=== PATIENT | female | born 1960 | race Caucasian/White ===

== ENCOUNTER → 2016-10-25 | Outpatient (CLI) | payer OTHER ==
[~2016-10-25] MED LIST: IBUP400T22 PO; SULI150T39 PO
--- NOTE | 2016-10-26 14:43 | RADRPT ---
PROCEDURE: Limited x-ray of both lower extremities. CLINICAL INDICATION: Bilateral leg pain. TECHNIQUE: Single frontal view of both lower extremities was obtained weight bearing from the hips t o the calves. COMPARISON: None. FINDINGS: The hips are unremarkable. There is severe joint space narrowing and osteophyte formation involving medial and lateral compartments of the right knee. Left knee is grossly unremarkable. IMPRESSION: 1. Normal hips and left knee. 2. Severe right knee osteoarthrosis. RPTAT: QQ .Brandin Ledesma MD, MD Date Time Electronically viewed and signed by .Brandin Ledesma MD, on 10/26/2016 14:42 .R/
== END | disposition home or self-care (01) ==
LOC: HKI 09:46
PROVIDERS: ATTEND Orthopaedic Surgery
DX: Z01.818 Encounter for other preprocedural examination (principal); M17.11 Unilateral primary osteoarthritis, right knee; M25.561 Pain in right knee
CPT/HCPCS: 77073; Z7500; 87081; G0463

== ENCOUNTER 2016-11-02 08:42 | Inpatient (IN) | payer OTHER ==
[2016-11-01 11:31] VITALS: BMI 29.5
[~2016-11-02] VITALS: Ht 152.4 cm; Wt 66.3 kg
[2016-11-16] VITALS (28 sets, daily range): BP systolic 97–131; BP diastolic 50–77; PULSE 54–80; RESP 14–22; Ht 152.4 cm; Wt 66.3 kg
[2016-11-16] MEDS ORDERED: CELECOXIB 400 MG PO X1 DOSE PO ONE (07:00)
[2016-11-16] MEDS ORDERED: SOD CHLORIDE 0.9% IV ONE (07:00)
[2016-11-16] MEDS ORDERED: PREGABALIN 300 MG PO X1 PO ONE (07:00)
[2016-11-16] MEDS ORDERED: SOD CHLORIDE 0.9% IVPB ONE ×3 (07:00→23:30)
[2016-11-16] MEDS ORDERED: traMADOL 50 MG TAB X 1 DOSE PO ONE (07:00)
[2016-11-16] MEDS ORDERED: oxyCODONE (CR) 10 MG TAB [oxyCONTIN] X1 DOSE PO ONE (07:00)
[2016-11-16] MEDS ORDERED: BUPIVACAINE LIPOSOME/PF 266 MG/20 ML VIAL INFIL ONE (07:00)
[2016-11-16] MEDS ORDERED: TRANEXAMIC ACID IVPB ONE ×3 (07:00→23:30)
[2016-11-16] MEDS ORDERED: PAIN COCKTAIL-CEFUROXIME IRR ONE ×7 (07:00)
[2016-11-16] MEDS ORDERED: TRANEXAMIC ACID IV ONE (07:00)
[2016-11-16] MEDS ORDERED: VANCOMYCIN 1 GM/NS 250 ML X1 BEFORE INCISION IVPB ONE (07:00)
[2016-11-16] MEDS: LACTATED RINGER'S 1,000 ML IV SCH ×4 (08:00→22:10)
[2016-11-16] MEDS ORDERED: EXPAREL NOTE (BUPIVICAINE LIPOSOMAL) XX SCH (09:00)
[2016-11-16] MEDS ORDERED: TRAM-40 PO (12:21)
[2016-11-16] MEDS ORDERED: MELO-110 PO (12:21)
[2016-11-16] MEDS ORDERED: VANCOMYCIN 1 GM INJ ONE ×3 (13:21→15:22)
[2016-11-16] MEDS ORDERED: POLYMYXIN B 500000 UNIT INJ ONE (13:21)
[2016-11-16] MEDS ORDERED: SODIUM CL BACTERIOSTATIC 30 ML INJ ONE (13:21)
--- NOTE | 2016-11-16 14:06 | HPN ---
Date/Time of Note Date/Time of Note DATE: 11/16/16 TIME: 14:06 Interval H&P Admission Note Pt. seen H&P reviewed: No system changes No change from H&P on 11/11/16 by JULIETA Grissom MD Nov 16, 2016 14:06
[2016-11-16] MEDS ORDERED: FENTAnyl 50 MCG/ML VIAL ONE (14:25)
[2016-11-16] MEDS ORDERED: ONDANSETRON 4 MG INJ ONE (14:25)
[2016-11-16] MEDS ORDERED: METOCLOPRAMIDE 10 MG INJ ONE (14:25)
[2016-11-16] MEDS ORDERED: MIDAZOLAM 1 MG/ML 2 ML INJ ONE (14:25)
[2016-11-16] MEDS ORDERED: DEXAMETHASONE 4 MG/ML 1 ML INJ ONE (14:25)
[2016-11-16] MEDS ORDERED: CEFAZOLIN 1 GM INJ ONE (14:45)
[2016-11-16] MEDS ORDERED: EPHEDrine SULFATE 50 MG/5 ML SYG ONE (14:54)
[2016-11-16] MEDS ORDERED: TOBRAMYCIN 1.2 GM POWDER ONE (14:55)
[2016-11-16] MEDS ORDERED: BACITRACIN 50000 UNITS INJ ONE (15:00)
[2016-11-16] MEDS ORDERED: ONDANSETRON 4 MG INJ IV PRN ×2 (15:30→17:30)
[2016-11-16] MEDS ORDERED: DIPHENHYDRAMINE 50 MG INJ IV PRN (15:30)
[2016-11-16] MEDS ORDERED: METOCLOPRAMIDE 10 MG INJ IV PRN (15:30)
[2016-11-16] MEDS ORDERED: MEPERIDINE 25 MG INJ IV PRN (15:30)
[2016-11-16] MEDS ORDERED: HYDROmorphONE (0.2 MG/ML) 10ML SYG IV PRN ×3 (15:30)
[2016-11-16] MEDS ORDERED: PROPOFOL 100 ML ONE (16:29)
--- NOTE | 2016-11-16 17:18 | OPPN ---
Date/Time of Note Date/Time of Note DATE: 11/16/16 TIME: 17:16 Operative/Procedure Note Dictation # [id number] Pre-Operative Diagnosis Right Knee OA Post-Operative Diagnosis Same Procedure Right TKA Surgeon: JULIETA GIL MD Investigator Utility Bill Complaints: TAYLOR AGUILAR PA-C Anesthesiologist: MALISSA GARDNER MD Findings Severe OA Blood Usage/Administration None Implants/Grafts Depuy Attune TKA Estimated blood loss: minimal Drains Hemovac x 1 Specimens Bone and soft tissue and synovial fluid x 2 Complications: None Anesthesia type: spinal JULIETA GIL MD Nov 16, 2016 17:18
[2016-11-16] MEDS ORDERED: NACL 0.9% 3 ML SYG IV SCH (17:30)
[2016-11-16] MEDS ORDERED: MAGNESIUM HYDROXIDE 30ML CUP PO PRN (17:30)
[2016-11-16] MEDS ORDERED: ASPIRIN (EC) 325 MG TAB PO ONE (17:30)
[2016-11-16] MEDS ORDERED: NA PHOSPHATE/BIPHOS 133 ML ENEMA PR PRN (17:30)
[2016-11-16] MEDS ORDERED: DIPHENHYDRAMINE 25 MG CAP PO PRN (17:30)
[2016-11-16] MEDS ORDERED: oxyCODONE 5 MG TAB PO PRN (17:30)
[2016-11-16] MEDS ORDERED: BISACODYL 10 MG SUPP PR PRN (17:30)
--- NOTE | 2016-11-16 17:33 | PN ---
Date/Time of Note Date/Time of Note DATE: 11/16/16 TIME: 17:32 Assessment/Plan Lines/Catheters IV Catheter Type (from Nrsg): Peripheral IV Assessment/Plan Assessment/Plan Stable in PACU, s/p right TKA -continue vancomycin x 72 hours until final culture results -pain meds as needed -ASA/SCDs for DVT prophylaxis -OOB with PT -check AM labs -monitor drain -d/c timmons in AM XR of the right knee shows good alignment with no evidence of fracture or dislocation Subjective 24 Hr Interval Summary Stable in PACU. Moving all extremities. Denies pain. Exam/Review of Systems Vital Signs Vitals Vital Signs Date Time Temp Pulse Resp B/P Pulse Ox O2 Delivery O2 Flow Rate FiO2 11/16/16 17:26 97.9 11/16/16 12:17 77 16 131/77 99 Room Air Exam Free Text/Dictation Dressing dry Incision clean, dry, and intact without redness or drainage Thigh soft 5/5 Quadriceps, Tibialis Anterior, EHL, Gastroc, Soleus, Peroneals Normal sensation Palpable DT/PT, CR <2 sec No distal edema TAYLOR AGUILAR PA-C Nov 16, 2016 17:33
[2016-11-16 17:38] LABS: HEMATOCRIT 39.5 % (37.0-47.0); HEMOGLOBIN 12.6 g/dl (12.0-16.0)
--- NOTE | 2016-11-16 17:58 | OPR ---
DATE OF OPERATION: 11/16/2016 PREOPERATIVE DIAGNOSIS: Right knee osteoarthritis. POSTOPERATIVE DIAGNOSIS: Right knee osteoarthritis. OPERATION PERFORMED: Right total knee arthroplasty. SURGEON: Julieta Messer MD CUTTING MACHINE TENDER: GLEN Hong COMPONENTS USED: DePuy Attune size 4 femoral component, size 2 tibial baseplate , 6 mm polyethylene insert and a 35 patellar button. ANESTHESIA: Spinal plus general endotracheal intubation plus periarticular injection. ANESTHESIOLOGIST: MALISSA GARDNER MD. TOURNIQUET TIME: 79 minutes. ESTIMATED BLOOD LOSS: 50 mL. INTRAVENOUS FLUIDS: 2100 mL crystalloid. SPECIMENS: Bone and soft tissue and synovial culture x2. DRAINS: Hemovac x1. COMPLICATIONS: None. DISPOSITION: Patient tolerated the procedure well and was taken to the recovery room in stable condition. INDICATIONS: The patient is a 56-year-old woman who has had progressive worsening pain in the right knee with radiographic evidence of severe osteoarthritis. She has failed nonsurgical means of treatment to control her pain including activity modifications, pain medications, intra-articular injections and ambulatory assist devices. Despite these measures, she has had worsening pain and I felt she would benefit from a total knee arthroplasty. Of note, she did have a prior knee arthroscopy with questionable postoperative infection. Prior to proceeding with knee replacement, aspiration was done which was negative for evidence of infection. I felt it would be in her best interest to take cultures and use Stimulan beads at the end of the surgery. The risks, benefits, and alternatives of the procedure were explained in detail to the patient. I explained the risks of the surgery to include but not be limited to, bleeding and possible need for blood transfusion; infection; pain; stiffness; neurovascular injury with possible numbness, weakness, and/or paralysis anywhere from the knee down to the toes; fracture; instability; dislocation; wear and/or loosening of the prosthesis and possible need for future revision; blood clots; pulmonary embolism; and anesthetic complications such as heart attack, stroke, GI bleed, pneumonia, and/or . Ample time was allowed for the patient to ask questions, all of which were addressed and answered. The patient understood the risks involved and wished to proceed. Informed consent was signed prior to the procedure. PROCEDURE: The patient's right knee was initialed with a marking pen in the preoperative area to identify the correct operative site. The patient was brought to the operating room and transferred from the hospital gurney to the operating table where a spinal anesthetic was administered. The patient was then anesthetized and intubated. A Felipe catheter was placed. A timeout was performed to confirm that the right leg was the correct operative site. The patient was given 2 g of Ancef within one hour prior to the procedure. A tourniquet was placed on the operative proximal thigh. The operative knee and lower extremity were prepped and draped in the usual sterile fashion. The operative lower extremity was elevated and exsanguinated with an Esmarch tourniquet. The proximal thigh tourniquet was inflated to 300 mmHg. The knee was flexed. A midline incision was made and carried down through the subcutaneous tissue and fat with sharp dissection. Limited medial and lateral flaps were raised. A median parapatellar arthrotomy approach was performed. Synovial fluid was normal in color and consistency. The patella was everted and the knee flexed. There were severe tricompartmental osteoarthritic changes noted. A medial release was performed at the joint line to the midcoronal plane. The ACL and PCL and remnants of the menisci were excised. The stepped drill was used to open up the femoral canal which was irrigated and sucked dry. The intramedullary guide gilson was passed up the femur, and the distal cutting block was pinned into place for a 5 degree valgus cut, taking 10 mm of bone off distally. The oscillating saw was used to make the cut. The tibia was subluxed anteriorly. The tibial cutoff jig was placed over the center of the talus distally and over the junction of the medial and middle third of the tibial tubercle proximally. The guide was pinned into place and the oscillating saw was used to make the cut. The tibia was sized. The extension gap was checked and accommodated a 6 mm spacer block with the knee in full extension. There was no varus or valgus instability. At this point, the femur was sized with the posterior referencing guide. Two holes were drilled in 3 degrees of external rotation. The two holes were in line with the transepicondylar axis, perpendicular to [place]'s line, and in line with the tibial cutoff jig brought up with the knee flexed 90 degrees and tensed with 2 lamina spreaders, suggesting the femoral rotation was correct. The four-in-one cutting block was pinned into place. The anterior and posterior cuts and chamfer cuts were made with the oscillating saw. The flexion gap was checked and accommodated the 6 mm spacer block at 90 degrees. There was no varus or valgus instability, suggesting the flexion and extension gaps were now equal. The central box was cut out on the femur. The tibia was drilled and punched in proper rotation. Trial components were placed into position with a trial insert. The patella was cut from 21 mm down to 13 mm and sized. Three holes were drilled and the trial button placed in position. With all the trials now in place, the knee was taken through range of motion and came to full extension as evidenced by the fact that with the foot on my abdomen and axial loading, there was no tendency for the knee to flex. The knee was able to be flexed to 125 degrees with good patellar tracking with no lateral tilt or subluxation. At this point, I was satisfied with the overall range of motion, stability, and patellar tracking. The trials were removed. The real components were opened. Two bags of cement were mixed, one with and one without premixed antibiotic. The knee was irrigated with antibiotic saline and sucked dry. Once the cement was in a doughy stage, the real components were cemented into place. The knee was held in full extension, and the patellar component was held with a patellar clamp. All excess cement was removed with curettes. As the cement was hardening, the synovial/capsular layer was infiltrated with a mixture of 150 mg of 0.5% Bupivacaine, 8 mg of Duramorph, 300 mcg of epinephrine, 30 mg of Toradol, 100 mcg of clonidine, 750 mg of cefuroxime and 86 mL of normal saline, followed by an injection of 266 mg of liposomal Bupivacaine. A Hemovac drain was placed in the deep portion of the wound and brought out the anterolateral thigh. Once the cement was completely hardened, the trial liner was removed, and the real insert was opened. The tourniquet was let down, and there was good hemostasis. The knee was then irrigated with a mixture of betadine/saline and then antibiotic saline with pulsatile lavage. The real insert was impacted into the tibia and reduced onto to the femur. Stimulan beads mixed with Vancomycin and Tobramycin were placed in the knee joint. The arthrotomy was closed with a few interrupted #1 PDS sutures in a figure-of- eight fashion, and then closed in a watertight fashion with a running #2 Stratafix suture. Knee flexion was checked against gravity and came to 125 degrees. The subcutaneous layer was irrigated and closed with 2-0 Statafix, and then 3-0 Vicryl and then jeffery on the skin. The wound was covered with an occlusive dressing, and secured with cast padding and a bias dressing. The drain was secured with 3-0 nylon. The sponge and needle counts were correct at the end of the case. The patient was then awakened, extubated, and taken to the recovery room in stable condition. Dictated By: JULIETA BARGER/NTS Conf#: [id number] DID#: [id number] MTDD
[2016-11-16] MEDS: ACETAMINOPHEN 1000MG/100ML IV 100 ML IVPB SCH ×2 (18:07→23:58)
[2016-11-16] MEDS: PANTOPRAZOLE (EC) 40 MG TAB PO SCH (18:07)
[2016-11-16] MEDS: traMADol 50 MG TAB PO SCH ×2 (18:08→23:57)
--- NOTE | 2016-11-16 18:14 | RADRPT ---
PROCEDURE: XR Knee. CLINICAL INDICATION: Postop TECHNIQUE: AP and lateral views of the right knee are available for review. COMPARISON: None available FINDINGS: A cemented left total knee arthroplasty is present in near anatomic alignment without acute radiogra phic abnormality. Antibiotic beads are seen in the suprapatellar recess per Recent surgical changes seen in the soft tissues. IMPRESSION: 1. Total right knee arthroplasty in near anatomic alignment without acute radiographic abnormality RPTAT: PP .Robert Linares MD, Date Time Electronically viewed and signed by .Robert Linares MD, MD on 11/16/2016 18:13 .d/
[2016-11-16 18:50] LABS: CALCIUM 8.8 mg/dl (8.4-10.2); CREATININE 0.56 mg/dl (0.44-1.00); POTASSIUM 4.1 mmol/L (3.5-5.1)
[2016-11-16] MEDS: DOCUSATE SODIUM 100 MG CAP PO SCH (20:56)
[2016-11-16] MEDS: PREGABALIN 25 MG CAP PO SCH (20:56)
[2016-11-16] MEDS: VANCOMYCIN 1 GM (PMX) 250 ML IVPB SCH (21:35)
[2016-11-17 00:56] VITALS: BP 101/63; PULSE 69; RESP 19
[2016-11-17] MEDS: LACTATED RINGER'S 1,000 ML IV SCH (01:18)
[2016-11-17] MEDS: ACETAMINOPHEN 1000MG/100ML IV 100 ML IVPB SCH ×2 (05:06→11:47)
[2016-11-17] MEDS: PANTOPRAZOLE (EC) 40 MG TAB PO SCH ×2 (05:06→17:41)
[2016-11-17] MEDS: traMADol 50 MG TAB PO SCH ×4 (05:07→23:10)
[2016-11-17 05:46] VITALS: BP 98/57; PULSE 60; RESP 18
[2016-11-17 05:46] LABS: HEMATOCRIT 35.3 % (37.0-47.0); HEMOGLOBIN 11.4 g/dl (12.0-16.0)
[2016-11-17 05:54] LABS: CREATININE 0.52 mg/dl (0.44-1.00)
[2016-11-17 05:55] LABS: CALCIUM 8.8 mg/dl (8.4-10.2)
[2016-11-17 06:19] LABS: ADD UMIC NO; URINE BILIRUBIN (Dip) NEGATIVE (NEGATIVE); URINE BLOOD (Dip) NEGATIVE (NEGATIVE); URINE COLOR LT. YELLOW (YELLOW); URINE GLUCOSE (Dip) NEGATIVE (NEGATIVE); URINE KETONES (Dip) NEGATIVE (NEGATIVE); URINE LEUKOCYTE ESTERASE (Dip) NEGATIVE (NEGATIVE); URINE NITRITE (Dip) NEGATIVE (NEGATIVE); URINE TOTAL PROTEIN (Dip) NEGATIVE (NEGATIVE); URINE UROBILINOGEN (Dip) 0.2 E.U./dL (0.1-1.0)
--- NOTE | 2016-11-17 06:23 | CONS ---
Date/Time of Note Date/Time of Note DATE: 11/17/16 TIME: 06:12 Assessment/Plan Assessment/Plan Additional Assessment/Plan 1. Right knee osteoarthritis s/p total knee arthroplasty - Cont pain mgmt - ambulation and PT when ok'd by surgery - DVT ppx per surgery 2. Mild Hypernatremia - monitor for now and correct as needed 3. Normocytic Anemia - slight drop in hgb likely dilutional effect from IVF. Blood loss from surgery only 50cc. - monitor Consultation Date/Type/Reason Admit Date/Time Nov 16, 2016 at 10:51 Hx of Present Illness This is a 56 yo female with hx of Right knee osteoarthritis who just underwent Right total knee arthroplasty. Consult was placed for medical mgmt. pat does not have significant medical hx and currently except intermittent right lower ext pain, pt does not have any complaints. Denied chest pain, SOB, N/V, f/c or abd pain. . Past Medical History Medical History: other (osteoarthritis of right knee) Social History Alcohol Use: none Smoking Status: Never smoker Drug Use: none Exam/Review of Systems Vital Signs Vitals Vital Signs Date Time Temp Pulse Resp B/P Pulse Ox O2 Delivery O2 Flow Rate FiO2 11/17/16 05:46 97.7 60 18 98/57 96 Room Air 11/16/16 21:30 1.0 Intake and Output 11/16/16 11/16/16 11/17/16 15:00 23:00 07:00 Intake Total 106.6 ml 2000 ml Output Total 860 ml 1030 ml Balance -753.4 ml 970 ml Exam Constitutional: alert, oriented, well developed Head: atraumatic, normocephalic Eyes: EOMI, PERRL Neck: non-tender, supple Respiratory: clear to auscultation, normal air movement Cardiovascular: nl pulses, regular rate and rhythm Gastrointestinal: non-tender, soft Extremities: other (right lower ext covered. sensation intact at his feet.) Results Result Diagram: 11/17/1642211/17/16422 Results 24 hrs Laboratory Tests Test 11/16/16 17:29 11/17/16 04:23 Anion Gap 12 12 Blood Urea Nitrogen 8 7 Calcium Level 8.8 8.8 Carbon Dioxide Level 27 26 Chloride Level 110 108 Creatinine 0.56 0.52 Glucose Level 134 114 Hematocrit 39.5 35.3 L Hemoglobin 12.6 11.4 L Potassium Level 4.1 4.0 Sodium Level 145 H 142 Medications Medications Current Medications Lactated Ringer's (Lr) 1,000 ml @ 100 mls/hr Q10H IV ; Start 11/16/16 at 08:00 Miscellaneous Information 1 ea 1 ea NOTE XX ; Start 11/16/16 at 09:00; Stop 11/20 at 08:59 Lactated Ringer's (Lr) 1,000 ml @ 125 mls/hr Q8H IV ; Start 11/16/16 at 17:18 Celecoxib 200 mg 200 mg DAILY PO ; Start 11/17/16 at 09:00 Acetaminophen (Ofirmev 1000mg/ 100ml Iv) 100 ml @ 400 mls/hr Q6 IVPB Last administered on 11/17/16 05:06; Admin Dose 400 MLS/HR; Start 11/16/16 at 18:00; Stop 11/17/16 at 17:59 Tramadol HCl (Ultram) 50 mg Q6 PO Last administered on 11/17/16 05:07; Admin Dose 50 MG; Start 11/16/16 at 18:00; Stop 11/19/16 at 17:59 Oxycodone HCl (Roxicodone) 5 mg Q4H PRN PO PAIN LEVEL 1-3; Start 11/16/16 at 17 :30 Oxycodone HCl (Roxicodone) 10 mg Q4H PRN PO PAIN LEVEL 4-7; Start 11/16/16 at 17:30 Hydromorphone HCl 1 mg 1 mg Q3H PRN IV PAIN LEVEL 8-10; Start 11/16/16 at 17:30 Vancomycin HCl (Vancocin) 250 ml @ 125 mls/hr Q12 IVPB Last administered on 21:35; Admin Dose 125 MLS/HR; Start 11/16/16 at 21:00; Stop 11/18/16 at 20:59 Ondansetron HCl (Zofran Inj) 4 mg Q6H PRN IV NAUSEA AND/OR VOMITING; Start at 17:30 Bisacodyl (Dulcolax Supp) 10 mg Q12H PRN [place] CONSTIPATION; Start 11/16/16 at 17: 30 Magnesium Hydroxide (Milk Of Mag) 30 ml BID PRN PO CONSTIPATION; Start at 17:30 Sodium Biphosphate/ Sodium Phosphate (Fleet Enema) 133 ml DAILY PRN [place] CONSTIPATION; Start 11/16/16 at 17:30 Docusate Sodium (Colace) 100 mg BID PO Last administered on 11/16/16 20:56; Admin Dose 100 MG; Start 11/16/16 at 21:00 Diphenhydramine HCl (Benadryl) 25 mg Q6H PRN PO PRURITUS; Start 11/16/16 at 17: 30 Aspirin (Ecotrin) 325 mg BID PO ; Start 11/17/16 at 09:00 Pantoprazole (Protonix Tab) 40 mg BID@06,18 PO Last administered on 11/17/16 05 :06; Admin Dose 40 MG; Start 11/16/16 at 18:00 Pregabalin (Lyrica) 50 mg BID PO Last administered on 11/16/16 20:56; Admin Dose 50 MG; Start 11/16/16 at 21:00 Influenza Virus Vaccine (Fluzone) 0.5 ml ONCE ONCE IM* ; Start 11/19/16 at 09:00 ; Stop 11/19/16 at 09:01 ABBY RUIZ MD Nov 17, 2016 06:23
[2016-11-17 07:48] VITALS: BP 94/52; RESP 15
--- NOTE | 2016-11-17 08:42 | PN ---
Date/Time of Note Date/Time of Note DATE: 11/17/16 TIME: 08:40 Assessment/Plan Lines/Catheters IV Catheter Type (from Nrsg): Peripheral IV Felipe in Place (from Nrsg): Yes Assessment/Plan Assessment/Plan Stable POD #1, s/p right TKA -cont Vanco x 72 hours and monitor culture results -pain meds as needed -ASA/SCDs for DVT prophylaxis -OOB with PT -monitor drain (will plan to remove tomorrow) -check AM labs -d/c planning. Will plan to go home upon discharge Subjective 24 Hr Interval Summary Doing well. No acute overnight events. Denies any pain. Moving all extremities. Did not start PT yet. VSS, afebrile. Exam/Review of Systems Vital Signs Vitals Vital Signs Date Time Temp Pulse Resp B/P Pulse Ox O2 Delivery O2 Flow Rate FiO2 11/17/16 07:48 98.4 62 15 94/52 98 11/17/16 05:46 Room Air 11/16/16 21:30 1.0 Intake and Output 11/16/16 11/16/16 11/17/16 15:00 23:00 07:00 Intake Total 106.6 ml 2000 ml Output Total 860 ml 1030 ml Balance -753.4 ml 970 ml Exam Free Text/Dictation Hemovac: 260cc Dressing dry Incision clean, dry, and intact without redness or drainage Thigh soft 5/5 Quadriceps, Tibialis Anterior, EHL, Gastroc, Soleus, Peroneals Normal sensation Palpable DT/PT, CR <2 sec No distal edema Results Result Diagram: 11/17/16 0423 11/17/16 0423 TAYLOR AGUILAR PA-C Nov 17, 2016 08:42
[2016-11-17] MEDS: CELECOXIB 200 MG CAP PO SCH (08:53)
[2016-11-17] MEDS: ASPIRIN (EC) 325 MG TAB PO SCH ×2 (08:53→21:20)
[2016-11-17] MEDS: VANCOMYCIN 1 GM (PMX) 250 ML IVPB SCH ×2 (08:53→21:20)
[2016-11-17] MEDS: DOCUSATE SODIUM 100 MG CAP PO SCH ×2 (08:53→21:20)
[2016-11-17] MEDS: PREGABALIN 25 MG CAP PO SCH ×2 (08:53→21:25)
--- NOTE | 2016-11-17 10:58 | PN ---
Date/Time of Note Date/Time of Note DATE: 11/17/16 TIME: 10:55 Assessment/Plan VTE Prophylaxis VTE Prophylaxis Intervention: SCD's Lines/Catheters IV Catheter Type (from Nrsg): Peripheral IV Urinary Cath still in place: Yes Subjective 24 Hr Interval Summary Free Text/Dictation Anesthesia Note; A56 year female s/p right knee arthroplasty pod#1, pt had ambulated , 5/10 after moving pain, no N/V, headache, itching. back is clean. V?S stable. Exam/Review of Systems Vital Signs Vitals Vital Signs Date Time Temp Pulse Resp B/P Pulse Ox O2 Delivery O2 Flow Rate FiO2 11/17/16 07:48 98.4 62 15 94/52 98 11/17/16 05:46 Room Air 11/16/16 21:30 1.0 Intake and Output 11/16/16 11/16/16 11/17/16 15:00 23:00 07:00 Intake Total 106.6 ml 2000 ml Output Total 860 ml 1030 ml Balance -753.4 ml 970 ml Results Result Diagram: 11/17/16 0423 11/17/16 0423 Results 24 hrs Laboratory Tests Test 11/16/16 17:29 11/17/16 04:23 11/17/16 05:30 Anion Gap 12 12 Blood Urea Nitrogen 8 7 Calcium Level 8.8 8.8 Carbon Dioxide Level 27 26 Chloride Level 110 108 Creatinine 0.56 0.52 Glucose Level 134 114 Hematocrit 39.5 35.3 L Hemoglobin 12.6 11.4 L Potassium Level 4.1 4.0 Sodium Level 145 H 142 Urine Bilirubin NEGATIVE Urine Clarity CLEAR Urine Color LT. YELLOW Urine Glucose NEGATIVE Urine Hemoglobin NEGATIVE Urine Ketones NEGATIVE Urine Leukocyte Esterase NEGATIVE Urine Nitrite NEGATIVE Urine Specific [place] <=1.005 L Urine Total Protein NEGATIVE Urine Urobilinogen 0.2 E.U./dL Urine pH 5.5 Medications Medications Current Medications Lactated Ringer's (Lr) 1,000 ml @ 100 mls/hr Q10H IV ; Start 11/16/16 at 08:00 Miscellaneous Information 1 ea 1 ea NOTE XX ; Start 11/16/16 at 09:00; Stop 11/20 at 08:59 Lactated Ringer's (Lr) 1,000 ml @ 125 mls/hr Q8H IV ; Start 11/16/16 at 17:18 Celecoxib 200 mg 200 mg DAILY PO Last administered on 11/17/16 08:53; Admin Dose 200 MG; Start 11/17/16 at 09:00 Acetaminophen (Ofirmev 1000mg/ 100ml Iv) 100 ml @ 400 mls/hr Q6 IVPB Last administered on 11/17/16 05:06; Admin Dose 400 MLS/HR; Start 11/16/16 at 18:00; Stop 11/17/16 at 17:59 Tramadol HCl (Ultram) 50 mg Q6 PO Last administered on 11/17/16 05:07; Admin Dose 50 MG; Start 11/16/16 at 18:00; Stop 11/19/16 at 17:59 Oxycodone HCl (Roxicodone) 5 mg Q4H PRN PO PAIN LEVEL 1-3; Start 11/16/16 at 17 :30 Oxycodone HCl (Roxicodone) 10 mg Q4H PRN PO PAIN LEVEL 4-7; Start 11/16/16 at 17:30 Hydromorphone HCl 1 mg 1 mg Q3H PRN IV PAIN LEVEL 8-10; Start 11/16/16 at 17:30 Vancomycin HCl (Vancocin) 250 ml @ 125 mls/hr Q12 IVPB Last administered on 08:53; Admin Dose 125 MLS/HR; Start 11/16/16 at 21:00; Stop 11/18/16 at 20 :59 Ondansetron HCl (Zofran Inj) 4 mg Q6H PRN IV NAUSEA AND/OR VOMITING; Start at 17:30 Bisacodyl (Dulcolax Supp) 10 mg Q12H PRN [place] CONSTIPATION; Start 11/16/16 at 17: 30 Magnesium Hydroxide (Milk Of Mag) 30 ml BID PRN PO CONSTIPATION; Start at 17:30 Sodium Biphosphate/ Sodium Phosphate (Fleet Enema) 133 ml DAILY PRN [place] CONSTIPATION; Start 11/16/16 at 17:30 Docusate Sodium (Colace) 100 mg BID PO Last administered on 11/17/16 08:53; Admin Dose 100 MG; Start 11/16/16 at 21:00 Diphenhydramine HCl (Benadryl) 25 mg Q6H PRN PO PRURITUS; Start 11/16/16 at 17: 30 Aspirin (Ecotrin) 325 mg BID PO Last administered on 11/17/16 08:53; Admin Dose 325 MG; Start 11/17/16 at 09:00 Pantoprazole (Protonix Tab) 40 mg BID@06,18 PO Last administered on 11/17/16 05 :06; Admin Dose 40 MG; Start 11/16/16 at 18:00 Pregabalin (Lyrica) 50 mg BID PO Last administered on 11/17/16 08:53; Admin Dose 50 MG; Start 11/16/16 at 21:00 Influenza Virus Vaccine (Fluzone) 0.5 ml ONCE ONCE IM* ; Start 11/19/16 at 09:00 ; Stop 11/19/16 at 09:01 MALISSA GARDNER MD Nov 17, 2016 10:58
--- NOTE | 2016-11-17 11:19 | PN ---
Date/Time of Note Date/Time of Note DATE: 11/17/16 TIME: 11:16 Assessment/Plan VTE Prophylaxis VTE Prophylaxis Intervention: other (on ASA 325 mg pO BID ) Lines/Catheters IV Catheter Type (from Nrsg): Peripheral IV Urinary Cath still in place: Yes Reason Cath still needed: other (indicate) (post op for TKA ) Assessment/Plan Assessment/Plan 1. Right knee osteoarthritis s/p total knee arthroplasty POD # 1 2. Mild Hypernatremia- improved 3. Normocytic Anemia Plan: post op care as per orthopedic,Hb 11.4 Pain control pt ambulated, c/o pain 5-04/28,BP stable afebrile, on ASA 325 mg PO BID for DVT prophylaxis as per Ortho Subjective 24 Hr Interval Summary Free Text/Dictation s/p right knee arthroplasty pod#1, pt had ambulated , 01/26 after moving pain Exam/Review of Systems Vital Signs Vitals Vital Signs Date Time Temp Pulse Resp B/P Pulse Ox O2 Delivery O2 Flow Rate FiO2 11/17/16 07:48 98.4 62 15 94/52 98 11/17/16 05:46 Room Air 11/16/16 21:30 1.0 Intake and Output 11/16/16 11/16/16 11/17/16 15:00 23:00 07:00 Intake Total 106.6 ml 2000 ml Output Total 860 ml 1030 ml Balance -753.4 ml 970 ml Exam Constitutional: alert, oriented, well developed Head: atraumatic, normocephalic Eyes: EOMI, PERRL Neck: non-tender, supple Respiratory: clear to auscultation, normal air movement Cardiovascular: nl pulses, regular rate and rhythm Gastrointestinal: non-tender, soft Extremities: other (right lower ext covered. sensation intact at his feet.) Results Result Diagram: 11/17/1642211/17/16422 Results 24 hrs Laboratory Tests Test 11/16/16 17:29 11/17/16 04:23 11/17/16 05:30 Anion Gap 12 12 Blood Urea Nitrogen 8 7 Calcium Level 8.8 8.8 Carbon Dioxide Level 27 26 Chloride Level 110 108 Creatinine 0.56 0.52 Glucose Level 134 114 Hematocrit 39.5 35.3 L Hemoglobin 12.6 11.4 L Potassium Level 4.1 4.0 Sodium Level 145 H 142 Urine Bilirubin NEGATIVE Urine Clarity CLEAR Urine Color LT. YELLOW Urine Glucose NEGATIVE Urine Hemoglobin NEGATIVE Urine Ketones NEGATIVE Urine Leukocyte Esterase NEGATIVE Urine Nitrite NEGATIVE Urine Specific [place] <=1.005 L Urine Total Protein NEGATIVE Urine Urobilinogen 0.2 E.U./dL Urine pH 5.5 Medications Medications Current Medications Lactated Ringer's (Lr) 1,000 ml @ 100 mls/hr Q10H IV ; Start 11/16/16 at 08:00 Miscellaneous Information 1 ea 1 ea NOTE XX ; Start 11/16/16 at 09:00; Stop 11/20 at 08:59 Lactated Ringer's (Lr) 1,000 ml @ 125 mls/hr Q8H IV ; Start 11/16/16 at 17:18 Celecoxib 200 mg 200 mg DAILY PO Last administered on 11/17/16 08:53; Admin Dose 200 MG; Start 11/17/16 at 09:00 Acetaminophen (Ofirmev 1000mg/ 100ml Iv) 100 ml @ 400 mls/hr Q6 IVPB Last administered on 11/17/16 05:06; Admin Dose 400 MLS/HR; Start 11/16/16 at 18:00; Stop 11/17/16 at 17:59 Tramadol HCl (Ultram) 50 mg Q6 PO Last administered on 11/17/16 05:07; Admin Dose 50 MG; Start 11/16/16 at 18:00; Stop 11/19/16 at 17:59 Oxycodone HCl (Roxicodone) 5 mg Q4H PRN PO PAIN LEVEL 1-3; Start 11/16/16 at 17 :30 Oxycodone HCl (Roxicodone) 10 mg Q4H PRN PO PAIN LEVEL 4-7; Start 11/16/16 at 17:30 Hydromorphone HCl 1 mg 1 mg Q3H PRN IV PAIN LEVEL 8-10; Start 11/16/16 at 17:30 Vancomycin HCl (Vancocin) 250 ml @ 125 mls/hr Q12 IVPB Last administered on 08:53; Admin Dose 125 MLS/HR; Start 11/16/16 at 21:00; Stop 11/18/16 at 20 :59 Ondansetron HCl (Zofran Inj) 4 mg Q6H PRN IV NAUSEA AND/OR VOMITING; Start at 17:30 Bisacodyl (Dulcolax Supp) 10 mg Q12H PRN [place] CONSTIPATION; Start 11/16/16 at 17: 30 Magnesium Hydroxide (Milk Of Mag) 30 ml BID PRN PO CONSTIPATION; Start at 17:30 Sodium Biphosphate/ Sodium Phosphate (Fleet Enema) 133 ml DAILY PRN [place] CONSTIPATION; Start 11/16/16 at 17:30 Docusate Sodium (Colace) 100 mg BID PO Last administered on 11/17/16 08:53; Admin Dose 100 MG; Start 11/16/16 at 21:00 Diphenhydramine HCl (Benadryl) 25 mg Q6H PRN PO PRURITUS; Start 11/16/16 at 17: 30 Aspirin (Ecotrin) 325 mg BID PO Last administered on 11/17/16 08:53; Admin Dose 325 MG; Start 11/17/16 at 09:00 Pantoprazole (Protonix Tab) 40 mg BID@06,18 PO Last administered on 11/17/16 05 :06; Admin Dose 40 MG; Start 11/16/16 at 18:00 Pregabalin (Lyrica) 50 mg BID PO Last administered on 11/17/16 08:53; Admin Dose 50 MG; Start 11/16/16 at 21:00 Influenza Virus Vaccine (Fluzone) 0.5 ml ONCE ONCE IM* ; Start 11/19/16 at 09:00 ; Stop 11/19/16 at 09:01 DACIA JACOBO MD Nov 17, 2016 11:19
[2016-11-17] MEDS: oxyCODONE 5 MG TAB PO PRN (20:33)
[2016-11-17 20:58] VITALS: BP 152/67; RESP 20
[2016-11-17] MEDS: HYDROmorphONE 1 MG/ML SYG IV PRN (21:25)
[2016-11-18 00:19] VITALS: BP 123/59; RESP 20
[2016-11-18] MEDS: HYDROmorphONE 1 MG/ML SYG IV PRN ×2 (03:24→10:22)
[2016-11-18 05:13] LABS: HEMATOCRIT 32.8 % (37.0-47.0); HEMOGLOBIN 10.7 g/dl (12.0-16.0)
[2016-11-18 05:36] LABS: POTASSIUM 3.8 mmol/L (3.5-5.1)
[2016-11-18 05:38] LABS: CREATININE 0.59 mg/dl (0.44-1.00)
[2016-11-18 05:39] LABS: CALCIUM 8.4 mg/dl (8.4-10.2)
[2016-11-18] MEDS: PANTOPRAZOLE (EC) 40 MG TAB PO SCH ×2 (05:47→17:29)
[2016-11-18] MEDS: traMADol 50 MG TAB PO SCH ×3 (05:47→17:32)
[2016-11-18] MEDS: CELECOXIB 200 MG CAP PO SCH (08:36)
[2016-11-18] MEDS: PREGABALIN 25 MG CAP PO SCH ×2 (08:36→20:48)
[2016-11-18] MEDS: DOCUSATE SODIUM 100 MG CAP PO SCH ×2 (08:36→20:48)
[2016-11-18] MEDS: ASPIRIN (EC) 325 MG TAB PO SCH ×2 (08:36→21:17)
[2016-11-18] MEDS: oxyCODONE 5 MG TAB PO PRN (08:36)
[2016-11-18] MEDS: VANCOMYCIN 1 GM (PMX) 250 ML IVPB SCH ×2 (08:36→20:48)
[2016-11-18 08:37] VITALS: BP 132/76; RESP 18
--- NOTE | 2016-11-18 10:03 | CONS ---
Date/Time of Note Date/Time of Note DATE: 11/18/16 TIME: 10:01 Assessment/Plan Assessment/Plan Chief Complaint/Hosp Course Assessment/Plan 1. Right knee osteoarthritis s/p total knee arthroplasty POD # 2 Continue post op care as per orthopedic,Hb 11.4 Pain control, physical therapy 2. Mild Hypernatremia- improved 3. Normocytic Anemia, stable continue to monitor Plan: on ASA 325 mg PO BID for DVT prophylaxis as per Ortho Problems: Consultation Date/Type/Reason Admit Date/Time Nov 16, 2016 at 10:51 Initial Consult Date 11/16/16 Referring Provider: JULIETA GIL MD 24 HR Interval Summary Free Text/Dictation Minimal discomfort Ambulating physical therapy Tolerating oral intake No other acute changes Exam/Review of Systems Vital Signs Vitals Vital Signs Date Time Temp Pulse Resp B/P Pulse Ox O2 Delivery O2 Flow Rate FiO2 11/18/16 08:37 98.2 74 18 132/76 94 11/17/16 05:46 Room Air 11/16/16 21:30 1.0 Intake and Output 11/17/16 11/17/16 11/18/16 15:00 23:00 07:00 Intake Total 800 ml 480 ml Output Total 1020 ml Balance 800 ml -540 ml Exam General: The patient is well-developed, Not in acute distress. HEENT: Atraumatic, normocephalic. The pupils are equal and round . Neck: Supple with full range of motion. Chest: Normal expansion of the thorax during inspiration Lungs: Clear to auscultation bilaterally Heart: Normal S1-S2, Regular rhythm and rate. Abdomen: Soft , nontender, nondistended , bowel sounds are present. Extremities: Right knee surgical site is dry and clean, no edema no cyanosis Neurologic: Normal mental status,The patient is awake, alert and oriented . Results Result Diagram: 11/18/16 04211/18/16 042 Results 24 hrs Laboratory Tests Test 11/18/16 04:20 Anion Gap 12 Blood Urea Nitrogen 10 Calcium Level 8.4 Carbon Dioxide Level 28 Chloride Level 106 Creatinine 0.59 Glucose Level 116 Hematocrit 32.8 L Hemoglobin 10.7 L Potassium Level 3.8 Sodium Level 142 Medications Medications Current Medications Miscellaneous Information 1 ea NOTE XX ; Start 11/16/16 at 09:00; Stop 11/20/16 at 08:59 Celecoxib (Celebrex) 200 mg DAILY PO Last administered on 11/18/16 08:36; Admin Dose 200 MG; Start 11/17/16 at 09:00 Tramadol HCl (Ultram) 50 mg Q6 PO Last administered on 11/18/16 05:47; Admin Dose 50 MG; Start 11/16/16 at 18:00; Stop 11/19/16 at 17:59 Oxycodone HCl (Roxicodone) 5 mg Q4H PRN PO PAIN LEVEL 1-3 Last administered on 11/18/16 00:40; Admin Dose 5 MG; Start 11/16/16 at 17:30 Oxycodone HCl (Roxicodone) 10 mg Q4H PRN PO PAIN LEVEL 4-7 Last administered on 11/18/16 08:36; Admin Dose 10 MG; Start 11/16/16 at 17:30 Hydromorphone HCl 1 mg 1 mg Q3H PRN IV PAIN LEVEL 8-10 Last administered on 11/18 03:24; Admin Dose 1 MG; Start 11/16/16 at 17:30 Vancomycin HCl (Vancocin) 250 ml @ 125 mls/hr Q12 IVPB Last administered on 08:36; Admin Dose 125 MLS/HR; Start 11/16/16 at 21:00; Stop 11/18/16 at 20 :59 Ondansetron HCl (Zofran Inj) 4 mg Q6H PRN IV NAUSEA AND/OR VOMITING; Start at 17:30 Bisacodyl (Dulcolax Supp) 10 mg Q12H PRN [place] CONSTIPATION; Start 11/16/16 at 17: 30 Magnesium Hydroxide (Milk Of Mag) 30 ml BID PRN PO CONSTIPATION; Start at 17:30 Sodium Biphosphate/ Sodium Phosphate (Fleet Enema) 133 ml DAILY PRN [place] CONSTIPATION; Start 11/16/16 at 17:30 Docusate Sodium (Colace) 100 mg BID PO Last administered on 11/18/16 08:36; Admin Dose 100 MG; Start 11/16/16 at 21:00 Diphenhydramine HCl (Benadryl) 25 mg Q6H PRN PO PRURITUS; Start 11/16/16 at 17: 30 Aspirin (Ecotrin) 325 mg BID PO Last administered on 11/18/16 08:36; Admin Dose 325 MG; Start 11/17/16 at 09:00 Pantoprazole (Protonix Tab) 40 mg BID@06,18 PO Last administered on 11/18/16 05 :47; Admin Dose 40 MG; Start 11/16/16 at 18:00 Pregabalin (Lyrica) 50 mg BID PO Last administered on 11/18/16 08:36; Admin Dose 50 MG; Start 11/16/16 at 21:00 Influenza Virus Vaccine (Fluzone) 0.5 ml ONCE ONCE IM* ; Start 11/19/16 at 09:00 ; Stop 11/19/16 at 09:01 MAKENNA BALDERRAMA MD Nov 18, 2016 10:03
--- NOTE | 2016-11-18 10:48 | PN ---
Date/Time of Note Date/Time of Note DATE: 11/18/16 TIME: 10:44 Assessment/Plan Lines/Catheters IV Catheter Type (from Nrsg): Saline Lock Fel[place] in Place (from Nrsg): Yes Assessment/Plan Assessment/Plan Stable POD #2, s/p right TKA -cont Vanco until cultures neg x 3 days -pain meds as needed. Will switch to norco for better pain control -OOB with PT -ASA/SCDs -drain removed -dressing changed -will likely be discharged home tomorrow Subjective 24 Hr Interval Summary Doing well. No acute overnight events. Having mild pain. Progressing with PT but stopped short secondary to sciatica type pain. VSS, afebrile. Cultures negative x 2 days. Exam/Review of Systems Vital Signs Vitals Vital Signs Date Time Temp Pulse Resp B/P Pulse Ox O2 Delivery O2 Flow Rate FiO2 11/18/16 08:37 98.2 74 18 132/76 94 11/17/16 05:46 Room Air 11/16/16 21:30 1.0 Intake and Output 11/17/16 11/17/16 11/18/16 15:00 23:00 07:00 Intake Total 800 ml 480 ml Output Total 1020 ml Balance 800 ml -540 ml Exam Free Text/Dictation Hemovac: 20cc Dressing dry Incision clean, dry, and intact without redness or drainage Thigh soft 5/5 Quadriceps, Tibialis Anterior, EHL, Gastroc, Soleus, Peroneals Normal sensation Palpable DT/PT, CR <2 sec No distal edema Results Result Diagram: 11/18/1641911/18/16419 TAYLOR AGUILAR PA-C Nov 18, 2016 10:47
[2016-11-18] MEDS: HYDROCODONE/APAP (7.5/325) TAB PO PRN ×2 (14:56→20:12)
[2016-11-18 21:49] VITALS: BP 146/78; RESP 20
[2016-11-19] MEDS: HYDROCODONE/APAP (7.5/325) TAB PO PRN ×2 (03:35→08:24)
[2016-11-19 04:50] LABS: HEMATOCRIT 34.9 % (37.0-47.0)
[2016-11-19 05:14] LABS: POTASSIUM 3.8 mmol/L (3.5-5.1)
[2016-11-19 05:17] LABS: CREATININE 0.54 mg/dl (0.44-1.00)
[2016-11-19 05:18] LABS: CALCIUM 8.8 mg/dl (8.4-10.2)
[2016-11-19] MEDS: traMADol 50 MG TAB PO SCH ×2 (05:49)
[2016-11-19] MEDS: PANTOPRAZOLE (EC) 40 MG TAB PO SCH (05:49)
--- NOTE | 2016-11-19 07:15 | PDOCDIS ---
Discharge Instructions DIAGNOSIS Discharge Diagnosis: s/p right total knee arthroplasty CONDITION Patient Condition: Good HOME CARE INSTRUCTIONS: Diet Instructions: Regular ACTIVITY: Activity Restrictions: Slowly Increase Activity Rest between Activity Avoid heavy lifting Do not Drive Do not operate Power Tool Avoid Heavy Housework Keep Limb Elevated Weight Bearing Bathing Restrictions: Shower FOLLOW UP/APPOINTMENTS Appointments follow up in the office on 11/26/16 OTHER ORDERS: Other Orders: S/P TKA Physical Therapy: Three times per week at home x 2 weeks Daily in Rehab/SNF (if applicable) WB STATUS: WBAT 1. Strengthening exercises for both upper and un-operated lower extremities. 2. Gait training with front wheeled walker 3. Active range of motion exercises to operative knee. 4. When not working on knee range of motion exercises, distal towel roll under operative ankle/distal calf to promote full extension. 5. DO NOT PUT ANYTHING BEHIND OPERATIVE KNEE!!! 6. Quadriceps and hamstring strengthening. 7. May switch to cane in contra lateral hand 6 weeks after surgery. 8. Physical Therapy can open case if nursing is not available. 9. Use Ice Machine as instructed from date of surgery while at rest 3X/day. 10. Patient requires mobile SCDs to reduce risk of developing DVT following TKA. Patient will use the mobile SCDs for 30 days postoperatively. Bathing assistance by home health aide twice weekly if Medicare patient. Occupational Therapy: Evaluation for assistive devices and ADL training. Wound Care: Keep incision dry & covered with Tegaderm until first visit with Dr. Messer Anticoagulation Orders: Enteric Coated Aspirin 325 mg po bid x 6 weeks from date of surgery Follow-up:Call for an appointment with Dr. Messer in 1 week after discharged from hospital at DME Orders: FWW, 3-in-1 Commode, Polar ice machine, Mobile SCDs TAYLOR AGUILAR PA-C Nov 19, 2016 07:15
[2016-11-19] MEDS ORDERED: PANT40TA4 PO (07:17)
[2016-11-19] MEDS ORDERED: GABA100C PO (07:17)
[2016-11-19] MEDS ORDERED: ASPI325T32 PO (07:17)
[2016-11-19] MEDS ORDERED: HYDR-905 PO (07:17)
[2016-11-19] MEDS ORDERED: TRAM50TA2 PO (07:17)
[2016-11-19 08:02] VITALS: BP 96/55; RESP 15
[2016-11-19] MEDS: VANCOMYCIN 1 GM (PMX) 250 ML IVPB SCH (08:23)
[2016-11-19] MEDS: DOCUSATE SODIUM 100 MG CAP PO SCH (08:24)
[2016-11-19] MEDS: CELECOXIB 200 MG CAP PO SCH (08:24)
[2016-11-19] MEDS: ASPIRIN (EC) 325 MG TAB PO SCH (08:24)
[2016-11-19] MEDS: PREGABALIN 25 MG CAP PO SCH (08:24)
--- NOTE | 2016-11-19 08:38 | PN ---
Date/Time of Note Date/Time of Note DATE: 11/19/16 TIME: 08:35 Assessment/Plan Lines/Catheters IV Catheter Type (from Nrsg): Saline Lock Felipe in Place (from Nrsg): Yes Assessment/Plan Assessment/Plan Stable POD #3, s/p right TKA -pain meds as needed -d/c abx since final cultures are negative -ASA/SCDs for DVT prophylaxis -stat venous doppler, RLE. Low suspicion for DVT -OOB with PT -dressing changed -discharge home today -follow up in the office in 1 week Subjective 24 Hr Interval Summary Doing well. No acute overnight events. Pain better controlled. Progressing with PT. Mild right leg swelling. VSS, afebrile. Stable for discharge home today. Final synovial cultures are all negative. Exam/Review of Systems Vital Signs Vitals Vital Signs Date Time Temp Pulse Resp B/P Pulse Ox O2 Delivery O2 Flow Rate FiO2 11/19/16 08:02 97.8 79 15 96/55 95 11/17/16 05:46 Room Air 11/16/16 21:30 1.0 Intake and Output 11/18/16 11/18/16 11/19/16 15:00 23:00 07:00 Intake Total 250 ml 1330 ml 480 ml Output Total 1500 ml 1200 ml Balance 250 ml -170 ml -720 ml Exam Free Text/Dictation Hemovac: Dressing dry Incision clean, dry, and intact without redness or drainage Thigh soft, mild swelling 5/5 Quadriceps, Tibialis Anterior, EHL, Gastroc, Soleus, Peroneals Normal sensation Palpable DT/PT, CR <2 sec No distal edema Results Result Diagram: 11/19/16 0421 11/19/16 0421 TAYLOR AGUILAR PA-C Nov 19, 2016 08:38
[2016-11-19] MEDS ORDERED: INFLUENZA VIRUS VACCINE 0.5 ML (DISPENSING) IM* ONE (09:00)
--- NOTE | 2016-11-19 09:09 | RADRPT ---
PROCEDURE: US right lower extremity veins. CLINICAL INDICATION: Right leg pain and swelling. TECHNIQUE: Multiple longitudinal and transverse images of the right lower extremity veins were obt ained with mejia scale and color Doppler imaging. The common femoral vein, femoral vein, and poplitea l vein were evaluated. 2D grayscale measurements with compression sonography, pulsed Doppler, color Doppler, and pulsed Doppler with augmentation. COMPARISON: No prior studies are available for comparison. FINDINGS: The right common femoral, femoral and popliteal veins are normally compressible throughout. Color f low demonstrates normal filling of the vessels. Normal waveforms are visualized and there is normal response to augmentation. IMPRESSION: 1. No evidence of deep vein thrombosis involving the right lower extremity. RPTAT: QQ .Eugenio Ny MD, MD Date Time Electronically viewed and signed by .Eugenio Ny MD, on 11/19/2016 09:08 .R/
--- NOTE | 2016-11-19 12:56 | DS ---
DATE OF ADMISSION: 11/16/2016 DATE OF DISCHARGE: 11/19/2016 CONDITION UPON DISCHARGE: Stable. ADMITTING DIAGNOSIS: Right knee osteoarthritis. DISCHARGE DIAGNOSIS: Status post right total knee arthroplasty. PROCEDURE PERFORMED: Right total knee arthroplasty. HOSPITAL COURSE: This is a 56-year-old female who was seen in the clinic initially complaining of right knee pain. She had undergone conservative modalities and it was thought she would benefit from a right total knee arthroplasty. On 11/16/2016, the patient was admitted and taken to the operating room where she underwent a right total knee arthroplasty. There were no intraoperative complications. The patient tolerated the procedure well. She was taken to the recovery room in stable condition. Pain was well controlled with oral pain medication. She was started on aspirin and SCDs for DVT prophylaxis. She remained hemodynamically stable and neurovascularly intact throughout her hospital stay. On postoperative day 1, she began physical therapy and continued to make good progress. She was deemed clinically stable for discharge on postoperative day #3. Intraoperative wound cultures were also obtained, which were negative. Prior to discharge, the incision was inspected and noted to be clean, dry and intact. Dressing changes were done prior to patient going home. LABORATORY ANALYSIS: Hemoglobin 11.0, hematocrit 34.9. Chemistry panel was within normal limits. DISCHARGE MEDICATIONS: 1. [place] 7.5/325 mg. 2. Tramadol 50 mg. 3. Aspirin 325 mg. 4. Neurontin 100 mg. 5. Protonix 40 mg. 6. Additionally, the patient should resume all her normal home medications. DISCHARGE INSTRUCTIONS: The patient will be discharged home in stable condition. She is to resume a normal diet. Activity includes weightbearing as tolerated on right lower extremity. She is to begin physical therapy with home health. She will be discharged home with the medication noted above and was advised to resume all her normal home medications. She is to call the office or go to the emergency room for any concerns including increased redness, swelling, drainage, fever or any concern regarding the operation or site of incision. FOLLOWUP: She is to follow up in the office in 1 week on 11/26/2016. Dictated By: TAYLOR CARROLL for JULIETA SLOAN/ANTON Conf#: [id number] DID#: [id number] [facility] HOSPITALKimmy
== END 2016-11-19 12:00 | disposition home or self-care (01) | DRG 470 ==
LOC: REC 11-16 10:51 → MS1 11-16 20:00
PROVIDERS: ADMIT Orthopaedic Surgery; ATTEND Orthopaedic Surgery
PROC: 0SRC0J9 Replacement of Right Knee Joint with Synthetic Substitute, Cemented, Open Approach (ICD-10-PCS; principal; 2016-11-16 14:00)
DX: M17.11 Unilateral primary osteoarthritis, right knee (principal); E87.0 Hyperosmolality and hypernatremia; D64.9 Anemia, unspecified; Z79.82 Long term (current) use of aspirin
CPT/HCPCS: 73560; 80048; 81003; 85014; 85018; 86850; 86900; 86901; 86920; 87070; 87075; 87081; 87086; 88304; 88311; 90686; 93971; 97110; 97116; 97162; 97166; 97530; Z7610; C1776; C9290; J0131; J0171; J0690; J0697; J0735; J1100; J1170; J1885; J2250; J2274; J2405; J2765; J3010; J3370; J7120

== ENCOUNTER → 2016-11-26 | Outpatient (CLI) | payer OTHER ==
[~2016-11-26] MED LIST changes: +ASPI325T32 PO; +GABA100C PO; +HYDR-905 PO; -IBUP400T22 PO; +PANT40TA4 PO; -SULI150T39 PO; +TRAM50TA2 PO
--- NOTE | 2016-11-26 10:18 | HKNOTE ---
DATE OF SERVICE: 11/26/2016 INTERVAL HISTORY: The patient presents today for her first postoperative evaluation. She is 10 days status post right total knee arthroplasty. She is doing well overall. She has not begun physical therapy at home, but did have an evaluation. She has also resumed smoking despite our recommendations. She has been taking aspirin twice daily for DVT prophylaxis. Her pain has been managed with tramadol primarily overall. She presents today for her first postoperative evaluation. PHYSICAL EXAMINATION: On exam today, she is alert and oriented x4, in no acute distress. She is ambulating with a front-wheel walker. Exam of the right knee demonstrates the incision to be clean, dry and intact. Patrick are in place. There is some mild soft tissue swelling. Homans sign is negative. Range of motion is 0-85 degrees. Compartments are otherwise soft. Neurovascular status is intact distally. IMAGING: X-rays of the right knee were obtained today and reviewed by me. They reveal good anatomic alignment with no fracture or dislocation identified. ASSESSMENT: Ten days status post right total knee arthroplasty. PLAN: The patrick were removed today, Steri-Strips were applied. I recommended the patient ice and elevate the extremity to reduce swelling. The patient is to continue aspirin twice daily for DVT prophylaxis. I also discussed with the patient that she needs to stop smoking immediately as she has increased risk of infection and other complications. If the patient develops any fevers, chills, redness or worsening of her swelling she will call the office. Otherwise, we will see her back in 4 weeks for repeat evaluation. Dictated By: TAYLOR SLOAN/ANTON Conf#: [id number] DID#: [id number] VERNA
--- NOTE | 2016-11-26 11:13 | RADRPT ---
PROCEDURE: XR right knee. CLINICAL INDICATION: Knee pain. TECHNIQUE: AP and lateral weightbearing views are available for review. COMPARISON: 11/16/2016 FINDINGS: There is a total knee replacement. There is no evidence of loosening of the prosthesis. The osseous structures are normal in mineralization, architecture and alignment No acute fracture or dislocation is seen.No osseous lesions are identified. The soft tissues are unremarkable . there is resorption of the antibiotic beads. IMPRESSION: Unremarkable total knee replacement. RPTAT: HGDB .Otoniel Lugo MD, MD Date Time Electronically viewed and signed by .Otoniel Lugo MD, on 11/26/2016 11:12 .B/
== END | disposition home or self-care (01) ==
LOC: HKI 08:44
PROVIDERS: ATTEND Orthopaedic Surgery
DX: Z47.1 Aftercare following joint replacement surgery (principal); Z96.651 Presence of right artificial knee joint; F17.200 Nicotine dependence, unspecified, uncomplicated

== ENCOUNTER → 2017-02-21 | Outpatient (CLI) | payer OTHER ==
--- NOTE | 2017-02-21 16:26 | RADRPT ---
PROCEDURE: Right knee x-ray CLINICAL INDICATION: PAIN TECHNIQUE: AP, lateral, and sunrise views of the knee were obtained. COMPARISON: Plain radiographs of the right knee from 11/26/2016 FINDINGS: No acute fracture or dislocation is seen. There is normal mineralization. Again noted is a right knee prosthesis in near anatomic alignment without evidence of hardware loose svetlana. There is no joint effusion. There is no significant soft tissue swelling. IMPRESSION: Right knee prosthesis in near anatomic alignment without evidence of hardware loosening. RPTAT: EE Physician Jayce Date Time Electronically viewed and signed by Physician Jayce on 02/21/2017 16:26 /
== END | disposition home or self-care (01) ==
LOC: HKI 13:25
PROVIDERS: ATTEND Orthopaedic Surgery
DX: Z47.89 Encounter for other orthopedic aftercare (principal); Z96.651 Presence of right artificial knee joint
CPT/HCPCS: 73562; Z7500; G0463